=== PATIENT | female | born 1955 | race Caucasian/White ===

== ENCOUNTER 2018-07-08 07:17 | Day surgery (SDC) | payer BC ==
[2018-07-08] MEDS ORDERED: MIDAZOLAM 1 MG/ML 2 ML INJ (08:03)
[2018-07-08] MEDS ORDERED: PROPOFOL 40 ML (08:03)
[2018-07-08] MEDS ORDERED: LIDOCAINE 2% (SDV) 5 ML INJ (08:03)
[2018-07-08] MEDS ORDERED: ONDANSETRON 4 MG INJ IV (08:30)
== END 2018-07-08 15:49 | disposition home or self-care (01) ==
LOC: GIL 07:17
DX: Z12.11 Encounter for screening for malignant neoplasm of colon (principal); K64.0 First degree hemorrhoids
CPT/HCPCS: 45378; 88305